=== PATIENT | male | born 1985 | race Caucasian/White ===

== ENCOUNTER 2021-08-11 13:26 | Emergency (ER) | payer BC, SELFPAY ==
--- NOTE | 2021-08-11 13:35 | ED.EAR ---
HPI - Ear Problem General Chief complaint: Ear Stated complaint: Congestion,Lt Ear Pain Time Seen by Provider: 08/11/21 13:35 Source: patient and RN notes reviewed Mode of arrival: ambulatory Limitations: no limitations History of Present Illness HPI Narrative: 36-year-old male presents to the [facility] with complaints of a sore to the upper inside left cheek. Also complains of decreased hearing, sinus congestion, 3 days. States he bit the inside of his cheek and this white area formed. Denies fevers, chest pain, abdominal pain, nausea, vomiting, diarrhea. Patient is Covid vaccinated Related Data Home Medications Medication Instructions Recorded Confirmed No Home Medications 08/11/21 08/11/21 Allergies Allergy/AdvReac Type Severity Reaction Status Date / Time amoxicillin Allergy Mild rash Verified 08/11/21 13:47 Review of Systems Review of Systems: All systems reviewed & are unremarkable except as noted in HPI and below Constitutional: Constitutional: Reports no additional constitutional complaints, Denies chills and Denies fever(s) Eyes: Eyes: Reports no additional eye complaints and Denies change in vision ENT: Reports as per HPI, Reports nasal congestion and Denies sore throat Cardiovascular: Cardiovascular: Reports no additional cardiovascular complaints and Denies chest pain Respiratory: Respiratory: Reports no additional respiratory complaints, Denies cough and Denies dyspnea Gastrointestinal: Gastrointestinal: Reports no additional gastrointestinal complaints, Denies abdominal pain, Denies nausea and Denies vomiting Genitourinary: Genitourinary: Reports no additional male genitourinary complaints Musculoskeletal: Musculoskeletal: Reports no additional musculoskeletal complaints Integumentary/Breasts: Skin/Breast: Reports as per HPI Comments: Inside left cheek minor swelling and pain Neurologic: Reports system reviewed and no additional complaints, except as documented Psychiatric: Psychiatric: Reports no additional psychiatric complaints Allergic/Immunologic: Allergic/Immunologic: Reports no additional allergic/immunologic complaints [facility] Past Medical History Medical History (Updated 08/11/21 @ 18:06 by Karen Pedroza) No significant medical problems Surgical History Surgical History (Updated 08/11/21 @ 17:52 by Karen Pedroza) No significant past surgical history Social History Social History (Updated 08/11/21 @ 17:52 by Karen Pedroza) Occupation/Education: occupation Additional occupation/education comments: Teacher Gender identity (if verbalized by the patient): Male Comments At the time of my signature, I reviewed and agree with the nursing past medical, surgical, social, and family history. There is no relevant family history pertinent to the patient complaint. Exam Const: General: healthy appearing, no acute distress and alert Nutritional Appearance: well nourished Orientation/consciousness: patient oriented x3 Limitations: no limitations HENMT: Head: normal to inspection Ears: external ears normal, EAC's normal and TM abnormal wth effusion serous bilateral and with fluid behind the TM bilateral; not erythematous and with no loss of landmarks General nose exam: Abnormal mucous membranes and turbinates present boggy bilateral and Nasal discharge present clear Face and sinus: normal facial exam Mouth: Yes lip normal Throat: uvula midline and postnasal drainage Eyes: Conjunctivae: conjunctivae normal Pupils: Equal, round and reactive pupils present Neck: Neck: normal visual inspection, no lymphadenopathy and no meningeal signs Chest: Chest palpation & inspection: normal inspection of the chest Resp: Effort & Inspection: normal respiratory effort and no use of accessory muscles Auscultation: clear to auscultation bilaterally, no crackles, no rales, no rhonchi and no wheezes Cardio: Rate: regular rate Rhythm: regular rhythm Back/Spine/Pelvis: Back: no C
[2021-08-11 13:37] VITALS: BP 137/78; PULSE 81; RESP 16; TEMP 37.3; O2SAT 100
== END 2021-08-11 13:51 | disposition home or self-care (01) ==
PROVIDERS: Emergency Provider Nurse Practitioner
DX: H65.03 Acute serous otitis media, bilateral (principal); K12.0 Recurrent oral aphthae
CPT/HCPCS: 99213; G0463